=== PATIENT | female | born 1955 | race Caucasian/White ===

== ENCOUNTER 2017-01-02 16:47 | Emergency (ER) | payer OTHER, MEDICARE ==
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
== END 2017-01-02 18:45 | disposition disaster alternative care site (69) ==
LOC: GACC 16:47
DX: S01.21XA Laceration without foreign body of nose, initial encounter (principal); S00.83XA Contusion of other part of head, initial encounter; S80.02XA Contusion of left knee, initial encounter; M54.2 Cervicalgia; E11.9 Type 2 diabetes mellitus without complications; Z79.82 Long term (current) use of aspirin; Z79.899 Other long term (current) drug therapy; Z98.890 Other specified postprocedural states; V49.49XA Driver injured in collision with other motor vehicles in traffic accident, initial encounter; Y92.410 Unspecified street and highway as the place of occurrence of the external cause

== ENCOUNTER → 2017-01-02 | Outpatient (CLI) | payer OTHER, MEDICARE | END | disposition disaster alternative care site (69) | LOC: GAMB 16:13 | DX: R53.1 Weakness (principal) | CPT/HCPCS: A0425; A0427 ==